=== PATIENT | male | born 1980 | race Caucasian/White ===

== ENCOUNTER 2018-02-01 02:05 | Emergency (ER) | payer OTHER ==
[2018-02-01 02:12] VITALS: BP 140/96
--- NOTE | 2018-02-01 02:23 | EDPHY ---
H & P Stated Complaint: joint pain starting today Time Seen by Provider: 02/01/18 02:14 HPI/ROS: Chief Complaint: Elbow, hand, knee and foot pain HPI: 37-year-old male with a history of gout is presenting complaining of worsening pain in his knees, feet, right hand and right elbow. He just moved here from [place] 2 days ago and does not have a local physician. Has been drinking alcohol recently. Normally takes colchicine but has not been on his medications recently. Normally has to take prednisone when he has flares like this. Denies any fevers or chills. No recent falls or injuries. Does admit to drinking alcohol this morning. No nausea or vomiting. ROS: 10 systems were reviewed and were negative except those elements noted in the HPI. PMH: Gout Social History: No smoking, occasional alcohol Family History: non-contributory Physical Exam: Gen: Awake, Alert, No Distress HEENT: Nose: no rhinorrhea Eyes: PERRLA, EOMI Mouth: Moist mucosa Neck: Supple, no JVD Chest: nontender, lungs clear to auscultation Heart: S1, S2 normal, no murmur Abd: Soft, non-tender, no guarding Back: no CVA tenderness, no midline tenderness Ext: no edema, patient has noted joint changes an extensive gouty tophi on bilateral MCP joints, right MCP joint on his right hand, gouty tophi in his right elbow. There is no erythema, is not warm to touch, no significant tenderness. Skin: no rash Neuro: CN II-XII intact, Sensation grossly intact, Strength 5/5 in bilateral upper and lower extremities - Personal History Current Tetanus/Diphtheria Vaccine: Yes Current Tetanus Diphtheria and Acellular Pertussis (TDAP): Yes - Medical/Surgical History Hx Asthma: No Hx Chronic Respiratory Disease: No Hx Diabetes: No Hx Cardiac Disease: No Hx Renal Disease: No Hx Cirrhosis: No Hx Alcoholism: No Hx HIV/AIDS: No Hx Splenectomy or Spleen Trauma: No Other PMH: gout. etoh - Social History Smoking Status: Current some day smoker Constitutional: Initial Vital Signs Temperature (C) 36.4 C 02/01/18 02:08 Heart Rate 94 02/01/18 02:08 Respiratory Rate 16 02/01/18 02:08 Blood Pressure 140/96 H 02/01/18 02:08 O2 Sat (%) 99 02/01/18 02:08 O2 Delivery Mode Room Air Allergies/Adverse Reactions: No Known Allergies Allergy (Unverified 02/01/18 02:07) Home Medications: Medication Instructions Recorded Colchicine 0.6 mg PO TID #30 tablet 02/01/18 Colcrys 02/01/18 Indomethacin 02/01/18 Indomethacin 50 mg PO TID #30 capsule 02/01/18 predniSONE 60 mg PO DAILY #12 tab 02/01/18 Medical Decision Making ED Course/Re-evaluation: Patient presenting with acute gout exacerbation. Does not have any appearance of infection at this time. Will start him on prednisone and colchicine. He will also take indomethacin. Will refer him to outpatient follow-up for further care. Departure - Departure Disposition: Home, Routine, Self-Care Clinical Impression: Gout Condition: Good Instructions: Gout (ED) Additional Instructions: Follow up with primary care physician in 2-3 days for further evaluation. Referrals: Moris Gonsalves MD [Medical Doctor] - As per Instructions Prescriptions: Colchicine 0.6 mg PO TID #30 tablet Indomethacin 50 mg PO TID #30 capsule predniSONE 60 mg PO DAILY #12 tab
== END 2018-02-01 02:53 | disposition home or self-care (01) ==
DX: M10.9 Gout, unspecified (principal); F17.200 Nicotine dependence, unspecified, uncomplicated

== ENCOUNTER 2018-02-09 16:19 | Emergency (ER) | payer OTHER, MEDICAID ==
[2018-02-09] MEDS ORDERED: DEXAMETHASONE 10 MG/ML VIAL IVP ONE (17:04)
[2018-02-09] MEDS ORDERED: KETOROLAC 30 MG/1 ML SDV IVP ONE (17:04)
[2018-02-09] MEDS ORDERED: chlordiazePOXIDE 25 MG CAP PO ONE (17:04)
[2018-02-09] MEDS ORDERED: DEXAMETHASONE 4 MG/ML VIAL ONE (17:11)
--- NOTE | 2018-02-09 17:20 | EDPHY ---
H & P Stated Complaint: c/o pain/swelling in bilat feet/bilat knees x 2-3 days, d/c'd [facility] Time Seen by Provider: 02/09/18 17:04 HPI/ROS: HPI: This is a 37-year-old male who presents with Chief Complaint: c/o pain/swelling in bilat feet/bilat knees x 2-3 days, d/c'd [facility] Location: Bilateral feet Quality: Pain and swelling Duration: 3-4 days Signs and Symptoms: No bleeding, no radiation, no numbness, no weakness, no tingling, no incontinence, + decreased range of motion, + swelling, + pain, no fever Timing: Acute on chronic. Rapidly worsening Severity: 12/07 Context: Patient has a history of gouty arthropathy, hypertension, alcohol abuse presents with complaints of 2-3 day history of gout flare in his bilateral great toes. He reports that there reddened and very painful and swollen. He reports that he is unable to walk without severe, nonradiating pain. He is originally from [place] and has recently moved to [place]. He is currently a transient and has been sleeping in the [facility]. He took colchicine 0.6 mg yesterday but does not have any more of this medication. He also admits to being out of his indomethacin 50 mg 3 times a day for the last 1 week. He denies any paresthesias, radiation, weakness. Patient reports that this is typical presentation of a gout flare for him. Patient was discharged from [facility] yesterday for alcohol withdrawal. Patient was seen in this emergency room on 02/01/2018 and given prednisone 60 mg times 12 days. This is not working for the patient's symptoms. He reports compliance with taking the prednisone but has not taken it today. Modifying Factors: Colchicine and prednisone 60 mg yesterday Comment: ROS: A comprehensive 10 system review of systems is otherwise negative aside from elements mentioned in the history of present illness. MEDICAL/SURGICAL/SOCIAL HISTORY: Medical history: Alcohol abuse, gouty arthropathy, hypertension Surgical history: Denies Social history: Transient. Originally from [place]. Current every day smoker. CONSTITUTIONAL: Tidy, malodorous, diaphoretic overweight white male, awake and alert, no obvious distress HEENT: Atraumatic and normocephalic. NECK: supple. No meningismus. Cardiovascular: Normal S1/S2, regular rate, regular rhythm, without murmur rub or gallop. PULMONARY/CHEST: Symmetrical and nontender. Clear to auscultation bilaterally. Good air movement. No accessory muscle usage. ABDOMEN: Soft, nondistended, nontender. EXTREMITIES: 2/2 pulses, strength 5/5, bilateral great toes are twice the size with tophi at the MTP joints with mild erythema and no warmth/discharge. Bilateral elbow showed tophi but no redness/effusion/swelling. DIP/PIP/MCP flexion/extension intact with good light touch sensation. no deformities, no clubbing, no cyanosis or edema. NEUROLOGICAL: no focal neuro deficits. GCS 15. Light touch sensation intact. SKIN: Warm and dry, no erythema. no rash. Good capillary refill. Source: Patient Exam Limitations: No limitations - Medical/Surgical History Hx Asthma: No Hx Chronic Respiratory Disease: No Hx Diabetes: No Hx Cardiac Disease: Yes Hx Renal Disease: No Hx Cirrhosis: No Hx Alcoholism: Yes Hx HIV/AIDS: No Hx Splenectomy or Spleen Trauma: No Other PMH: gout, hypertension, etoh - Social History Smoking Status: Current some day smoker Constitutional: Initial Vital Signs Temperature (C) 36.7 C 02/09/18 16:34 Heart Rate 103 H 02/09/18 16:34 Respiratory Rate 16 02/09/18 16:34 Blood Pressure 168/106 H 02/09/18 16:34 O2 Sat (%) 96 02/09/18 16:34 O2 Delivery Mode Room Air Allergies/Adverse Reactions: No Known Allergies Allergy (Verified 02/09/18 16:37) Home Medications: Medication Instructions Recorded Colcrys 02/01/18 Indomethacin 02/01/18 RX: Colchicine 0.6 mg PO TID #30 tablet 02/01/18 RX: Indomethacin 50 mg PO TID #30 capsule 02/01/18 RX: predniSONE 60 mg PO DAILY #12 tab 02/01/18 Colchicine [Colchicine (*)] 0.6 mg PO AD #3 tab 02/09/18 RX: Indomethacin 50 mg PO TID #21 capsule 02/09/18 Medical Decision Making - Diagnostics Imaging Results: Imaging Impressions Foot X-Ray 02/09/18 17:04 Impression: Findings most suggestive of an aggressive acute gouty arthritis with tophaceous calcifications and pronounced soft tissue swelling (right greater than left) at the level of the MTP joints. There also appears to be some soft tissue swelling peripheral lateral to the right fifth MTP joint. Findings were discussed with Phoebe Carpio PA-C at 17:31, on 02/09/2018. Foot X-Ray 02/09/18 17:05 Impression: Findings most suggestive of an aggressive acute gouty arthritis with tophaceous calcifications and pronounced soft tissue swelling (right greater than left) at the level of the MTP joints. There also appears to be some soft tissue swelling peripheral lateral to the right fifth MTP joint. Findings were discussed with Phoebe Carpio PA-C at 17:31, on 02/09/2018. ED Course/Re-evaluation: Vital signs reviewed and show mild tachycardia. I believe that patient is exhibiting mild alcohol withdrawal symptoms. Librium 50 mg given. No signs of alcohol withdrawal seizures/coma/delirium. I planned offer [facility] with Librium prepack. Laboratory studies including renal function, IV medications and bilateral foot x -rays ordered Patient given 1 L normal saline, Decadron 10 mg, IV Toradol and colchicine 1.2 mg 1734: Called by radiologist, Dr. Link, who advised that bilateral foot x- ray show arthropathy at the MTP joints consistent with gout as well as Achilles calcinosis. 1819: Labs reviewed. Leukocytosis noted likely secondary to steroid use. Creatinine 0.9 Patient will be discharged with Colchicine, Indomethacin and he is to complete his prednisone burst. He is on day 8 of 12. He will be [facility] with Librium prepack. Discussed thoroughly with patient that he does not meet inpatient criteria. Case management consult to establish care at [facility] and follow up with medication assistance. No signs of neurovascular compromise/tenting of skin/compartment syndrome/ extremities and joints examined above and below area of concern and are neurovascularly intact/cellulitis. This patient was seen under the supervision of my secondary supervising physician. I evaluated care for this patient independently. Discussed this patient with Dr. Brothers. Differential Diagnosis: Differential diagnosis includes but is not limited to rheumatoid arthritis, gouty arthropathy, cellulitis, septic arthritis. - Data Points Laboratory Results: Laboratory Results 02/09/18 17:35 02/09/18 17:35 02/09/18 02/09/18 17:35 17:35 WBC 14.26 10^3/uL H 10^3/uL (3.80-9.50) RBC 3.86 10^6/uL L 10^6/uL (4.40-6.38) Hgb 13.0 g/dL L g/dL (13.7-17.5) Hct 37.5 % L % (40.0-51.0) MCV 97.2 fL fL (81.5-99.8) MCH 33.7 pg pg (27.9-34.1) MCHC 34.7 g/dL g/dL (32.4-36.7) RDW 15.1 % % (11.5-15.2) Plt Count 275 10^3/uL 10^3/uL (150-400) MPV 9.5 fL fL (8.7-11.7) Neut % (Auto) 76.9 % H % (39.3-74.2) Lymph % (Auto) 13.7 % L % (15.0-45.0) Cataño % (Auto) 8.1 % % (4.5-13.0) Eos % (Auto) 0.1 % L % (0.6-7.6) Baso % (Auto) 0.5 % % (0.3-1.7) Nucleat RBC Rel Count 0.0 % % (0.0-0.2) Absolute Neuts (auto) 10.96 10^3/uL H 10^3/uL (1.70-6.50) Absolute Lymphs (auto) 1.96 10^3/uL 10^3/uL (1.00-3.00) Absolute Monos (auto) 1.16 10^3/uL H 10^3/uL (0.30-0.80) Absolute Eos (auto) 0.01 10^3/uL L 10^3/uL (0.03-0.40) Absolute Basos (auto) 0.07 10^3/uL 10^3/uL (0.02-0.10) Absolute Nucleated RBC 0.00 10^3/uL 10^3/uL (0-0.01) Immature Gran % 0.7 % % (0.0-1.1) Immature Gran # 0.10 10^3/uL 10^3/uL (0.00-0.10) Sodium 136 mEq/L mEq/L (135-145) Potassium 3.4 mEq/L mEq/L (3.3-5.0) Chloride 102 mEq/L mEq/L (97-110) Carbon Dioxide 23 mEq/l mEq/l (22-31) Anion Gap 11 mEq/L mEq/L (6-14) BUN 20 mg/dL mg/dL (7-23) Creatinine 0.9 mg/dL mg/dL (0.7-1.3) Estimated GFR > 60 Glucose 95 mg/dL mg/dL (70-100) Uric Acid 11.5 mg/dL H mg/dL (3.5-8.5) Calcium 9.6 mg/dL mg/dL (8.5-10.4) Medications Given: Discontinued Medications Chlordiazepoxide HCl (Librium) 50 mg PO EDNOW ONE Stop: 02/09/18 17:05 Last Admin: 02/09/18 17:20 Dose: 50 mg Colchicine (Colchicine) 1.2 mg PO EDNOW ONE Stop: 02/09/18 17:25 Last Admin: 02/09/18 17:57 Dose: 1.2 mg Dexamethasone (Decadron Injection) 10 mg IVP EDNOW ONE Stop: 02/09/18 17:05 Last Admin: 02/09/18 17:38 Dose: 10 mg Sodium Chloride (Ns) 1,000 mls @ 0 mls/hr IV EDNOW ONE; Wide Open PRN Reason: Protocol Stop: 02/09/18 17:25 Last Admin: 02/09/18 17:58 Dose: 1,000 mls Ketorolac Tromethamine (Toradol) 30 mg IVP EDNOW ONE Stop: 02/09/18 17:05 Last Admin: 02/09/18 17:39 Dose: 30 mg Departure - Departure Disposition: Home, Routine, Self-Care Clinical Impression: Has run out of medications, Alcohol abuse Chronic gout involving toe Qualifiers: Gout etiology: unspecified cause Laterality: unspecified laterality Presence of tophus: with tophus Qualified Code(s): M1A.9XX1 - Chronic gout, unspecified, with tophus (tophi) Gout flare Qualifiers: Gout site: toe Gout etiology: unspecified cause Laterality: unspecified laterality Qualified Code(s): M10.9 - Gout, unspecified Condition: Good Instructions: Indomethacin (By mouth), Colchicine (By mouth), Low Purine Diet ( ED), Gout (ED) Additional Instructions: Take steroid taper as directed. Take Indomethacin 50 mg 3 times a day. Take colchicine 0.6 mg 1 hr later after discharge from the ER. Establish care with [facility] in the next 1-2 weeks. You will be [facility] with [facility]. Take Librium as directed for alcohol withdrawal symptoms. Referrals: [facility],. [Clinic] - As per Instructions [facility] 24 Hours [Outside] - As per Instructions Prescriptions: Colchicine [Colchicine (*)] 0.6 mg PO AD #3 tab RX: Indomethacin 50 mg PO TID #21 capsule
[2018-02-09] MEDS ORDERED: NS 1,000 ML IV ONE (17:24)
[2018-02-09] MEDS ORDERED: COLCHICINE 0.6 MG CAP/TAB PO ONE ×2 (17:24→18:29)
[2018-02-09 17:43] LABS: PLATELET COUNT 275 10^3/uL (150-400)
[2018-02-09] MEDS ORDERED: OXYCODONE/APAP 5/325 TAB PO ONE (18:20)
[2018-02-09] MEDS ORDERED: CHLORDIAZEPOXIDE 25MG PREPK#6 BTL TAKEHOME ONE (18:22)
[2018-02-09 18:35] VITALS: BP 144/80
== END 2018-02-09 19:16 | disposition home or self-care (01) ==
DX: M1A.9XX1 Chronic gout, unspecified, with tophus (tophi) (principal); E86.9 Volume depletion, unspecified; D72.829 Elevated white blood cell count, unspecified; F10.10 Alcohol abuse, uncomplicated; F17.210 Nicotine dependence, cigarettes, uncomplicated; Z59.0 Homelessness
CPT/HCPCS: 96374; J1100; J1885

== ENCOUNTER 2018-02-19 07:50 | Emergency (ER) | payer OTHER, MEDICAID ==
[2018-02-19] MEDS ORDERED: NS 1,000 ML IV ONE (08:06)
[2018-02-19] MEDS ORDERED: KETOROLAC 30 MG/1 ML SDV IVP ONE (08:06)
[2018-02-19] MEDS ORDERED: DEXAMETHASONE 10 MG/ML VIAL IVP ONE (08:07)
[2018-02-19] MEDS ORDERED: COLCHICINE 0.6 MG CAP/TAB PO ONE (08:07)
--- NOTE | 2018-02-19 08:17 | EDPHY ---
H & P Time Seen by Provider: 02/19/18 08:00 HPI/ROS: Chief complaint. Foot pain, elbow pain and swelling HPI. Patient 37-year-old male homeless with history of gouty arthropathy. Is not taking his medications which include colchicine, indomethacin, prednisone. His last drink was 72 hr ago. Hurts to walk. He complains of pain to the base of both great toes also the base of the left 5th toe and left heel. Chronic swelling and pain to the right elbow. Also to the dorsum of the 3rd MCP joint. No trauma. No fever. Not sick. No trouble breathing. Seen in our emergency department about 10 days ago for similar symptoms. ROS 10 systems were reviewed and negative with the exception of the elements mentioned in the history of present illness Past Medical/Surgical History: Past medical history is significant for gout, hypertension, alcoholism Social History: Single, homeless, daily smoker, no recent alcohol Smoking Status: Current some day smoker Physical Exam: General Appearance: Alert well-developed male moderate distress vital signs show heart rate initially of 102 and blood pressure 153/111 Eyes: Pupils equal and round no pallor or injection. ENT, Mouth: Mucous membranes are moist. Respiratory: There are no retractions, lungs are clear to auscultation. Cardiovascular: Regular rate and rhythm. Gastrointestinal: Abdomen is soft and nontender, no masses, bowel sounds normal. Neurological: Awake and alert, sensory and motor exams grossly normal. Skin: Warm and dry, no rashes. Musculoskeletal: Neck is supple nontender. Extremities tenderness swelling at the MCP joints both feet. Some tenderness to the base of the left 5th toe. Tenderness at left heel. Chronic swelling to the right elbow. Tenderness and some swelling to the dorsum of the right hand Psychiatric: Patient is oriented X 3, there is no agitation. Constitutional: Initial Vital Signs Temperature (C) 37.2 C 02/19/18 07:56 Heart Rate 102 H 02/19/18 07:56 Respiratory Rate 20 02/19/18 07:56 Blood Pressure 153/111 H 02/19/18 07:56 O2 Sat (%) 98 02/19/18 07:56 O2 Delivery Mode Room Air Allergies/Adverse Reactions: No Known Allergies Allergy (Verified 02/09/18 16:37) Home Medications: Medication Instructions Recorded Colchicine 0.6 mg PO TID #30 tablet 02/01/18 Colcrys 02/01/18 Indomethacin 10/05/18 Indomethacin 50 mg PO TID #30 capsule 02/01/18 predniSONE 60 mg PO DAILY #12 tab 02/01/18 Colchicine [Colchicine (*)] 0.6 mg PO AD #3 tab 02/09/18 Indomethacin 50 mg PO TID #21 capsule 02/09/18 Colchicine 0.6 mg PO TID #30 tablet 02/19/18 Indomethacin 50 mg PO TID #20 capsule 02/19/18 predniSONE 20 mg PO DAILY #10 tab 02/19/18 Medical Decision Making Procedures: IV normal saline. Cultures seen orally, Decadron IV, Toradol IV ED Course/Re-evaluation: Re-evaluation at 9:30 a.m.. Patient is stable. Patient and I discussed treatment plan including criteria for return importance of follow-up and further evaluation. He expresses understanding and agreement I consulted case management to help him make an appointment at [facility] as well as fill prescription for medication Differential Diagnosis: Patient with history of gout. This appears to be gout flare. I suspect the elevated white blood cell count is from gout flare. There is a no other seeming sources of infection. Patient has not been on medications for his gout. - Data Points Laboratory Results: Laboratory Results 02/19/18 08:20 02/19/18 08:20 02/19/18 02/19/18 08:20 08:20 WBC 15.03 10^3/uL H 10^3/uL (3.80-9.50) RBC 4.29 10^6/uL L 10^6/uL (4.40-6.38) Hgb 14.3 g/dL g/dL (13.7-17.5) Hct 41.5 % % (40.0-51.0) MCV 96.7 fL fL (81.5-99.8) MCH 33.3 pg pg (27.9-34.1) MCHC 34.5 g/dL g/dL (32.4-36.7) RDW 14.5 % % (11.5-15.2) Plt Count 344 10^3/uL 10^3/uL (150-400) MPV 9.2 fL fL (8.7-11.7) Neut % (Auto) 85.8 % H % (39.3-74.2) Lymph % (Auto) 4.7 % L % (15.0-45.0) Antelope % (Auto) 8.8 % % (4.5-13.0) Eos % (Auto) 0.2 % L % (0.6-7.6) Baso % (Auto) 0.2 % L % (0.3-1.7) Nucleat RBC Rel Count 0.0 % % (0.0-0.2) Absolute Neuts (auto) 12.89 10^3/uL H 10^3/uL (1.70-6.50) Absolute Lymphs (auto) 0.71 10^3/uL L 10^3/uL (1.00-3.00) Absolute Monos (auto) 1.32 10^3/uL H 10^3/uL (0.30-0.80) Absolute Eos (auto) 0.03 10^3/uL 10^3/uL (0.03-0.40) Absolute Basos (auto) 0.03 10^3/uL 10^3/uL (0.02-0.10) Absolute Nucleated RBC 0.00 10^3/uL 10^3/uL (0-0.01) Immature Gran % 0.3 % % (0.0-1.1) Immature Gran # 0.05 10^3/uL 10^3/uL (0.00-0.10) Sodium 135 mEq/L mEq/L (135-145) Potassium 3.8 mEq/L mEq/L (3.3-5.0) Chloride 97 mEq/L mEq/L (97-110) Carbon Dioxide 30 mEq/l mEq/l (22-31) Anion Gap 8 mEq/L mEq/L (6-14) BUN 8 mg/dL mg/dL (7-23) Creatinine 0.8 mg/dL mg/dL (0.7-1.3) Estimated GFR > 60 Glucose 90 mg/dL mg/dL (70-100) Calcium 9.3 mg/dL mg/dL (8.5-10.4) Medications Given: Discontinued Medications Colchicine (Colchicine) 1.2 mg PO EDNOW ONE Stop: 02/19/18 08:08 Last Admin: 02/19/18 08:40 Dose: 1.2 mg Dexamethasone (Decadron Injection) 10 mg IVP EDNOW ONE Stop: 02/19/18 08:08 Last Admin: 02/19/18 08:54 Dose: Not Given Dexamethasone (Decadron Injection) 10 mg IVP EDNOW ONE Stop: 02/19/18 08:54 Last Admin: 02/19/18 08:58 Dose: 10 mg Sodium Chloride (Ns) 1,000 mls @ 0 mls/hr IV EDNOW ONE; Wide Open PRN Reason: Protocol Stop: 02/19/18 08:07 Last Admin: 02/19/18 08:06 Dose: 1,000 mls Ketorolac Tromethamine (Toradol) 30 mg IVP EDNOW ONE Stop: 02/19/18 08:07 Last Admin: 02/19/18 08:40 Dose: 30 mg Departure - Departure Disposition: Home, Routine, Self-Care Clinical Impression: Gout Qualifiers: Gout site: foot Gout etiology: unspecified cause Chronicity: acute Laterality: unspecified laterality Qualified Code(s): M10.9 - Gout, unspecified Condition: Good Instructions: Gout (ED) Additional Instructions: We are giving you prescriptions for colchicine, prednisone, indomethacin. Please take these as prescribed Return for worsening symptoms [facility] in the next 1-2 days Referrals: NONE *PRIMARY CARE P,. [Primary Care Provider] - As per Instructions [facility],. [Clinic] - 1-2 days without fail Prescriptions: Colchicine 0.6 mg PO TID #30 tablet Indomethacin 50 mg PO TID #20 capsule predniSONE 20 mg PO DAILY #10 tab
[2018-02-19 08:28] LABS: PLATELET COUNT 344 10^3/uL (150-400)
[2018-02-19] MEDS ORDERED: DEXAMETHASONE 4 MG/ML VIAL IVP ONE (08:53)
[2018-02-19 10:54] VITALS: BP 166/101
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
== END 2018-02-19 11:27 | disposition home or self-care (01) ==
LOC: EDUNIT#
DX: M10.9 Gout, unspecified (principal); I10 Essential (primary) hypertension; F17.200 Nicotine dependence, unspecified, uncomplicated; F10.21 Alcohol dependence, in remission; Z59.0 Homelessness
CPT/HCPCS: 96374; J1100; J1885